=== PATIENT | female | born 1970 | race Caucasian/White ===

== ENCOUNTER 2017-01-06 20:44 | Emergency (ER) | payer BC ==
[2017-01-06 20:37] LABS: INFLUENZA A POS (NEG); INFLUENZA B NEG (NEG)
[~2017-01-06 20:44] MED LIST: AMLODIPINE BESY10 MG PO; AUGMENTIN875 MG DOB; FLONASE 0.05% N16 G1; SERTRALINE HCL100 M1 PO; ZOLOFT PO
== END 2017-01-06 21:05 | disposition home or self-care (01) ==
LOC: SED 20:44
PROVIDERS: Emergency Medicine
DX: J09.X2 Influenza due to identified novel influenza A virus with other respiratory manifestations (principal); H92.02 Otalgia, left ear; M79.1 Myalgia; F17.210 Nicotine dependence, cigarettes, uncomplicated; Z79.899 Other long term (current) drug therapy
CPT/HCPCS: 87651; 87804; 99283